=== PATIENT | male | born 1965 | race Caucasian/White ===

== ENCOUNTER 2022-01-21 18:28 | Emergency (ER) | payer MEDICARE, SELFPAY ==
[2022-01-21 18:42] VITALS: BP 149/80; PULSE 125; RESP 16; TEMP 36.7; O2SAT 97
--- NOTE | 2022-01-21 18:47 | W.ED.WOUNDLC ---
HPI - Wound/Laceration General: Chief Complaint: Wound/Laceration Stated Complaint: feet swelling Time Seen by Provider: 01/21/22 18:47 History of Present Illness: 56-year-old male patient comes in today for concerns of some swelling to bilateral lower extremities. Patient also reports stepping on a nail on the bottom of his left foot a couple of days ago he does not recall his last tetanus shot. Patient has a history of diabetes and reports cardiac surgery. Bilateral lower extremities has swelling and redness. Patient denies any chest pain or shortness of breath. Patient does talk a lot with flight of ideas but is able to reorient to questions about his health and his plans on where he is going. Patient is trying to make his way to [facility] [place] in order to establish residency for [place] and attend classes to become certified as a [employer]INION S[employer]. Review of Systems General: Reports: 10 or more systems reviewed and unremarkable except in HPI and below Musc: Reports: extremity swelling Physical Exam Const: COMMON NORMALS: alert HENMT: COMMON NORMALS: normocephalic HEAD & SCALP: normocephalic Resp: COMMON NORMALS: normal respiratory effort and clear to auscultation bilaterally AUSCULTATION: clear to auscultation bilaterally Cardio: PALPATION: normal PMI RATE: tachycardic GI: COMMON NORMALS: Soft to palpation PALPATION: Yes Soft to palpation and No Tenderness to palpation present (GI) Extremity: NARRATIVE EXTREMITY EXAM: Bilateral lower extremities with +2 edema and erythema. LEFT LOWER EXTREMITY: Yes foot & digits (Puncture wound to the left lower foot without any signs of redness or swell) Neuro: SENSORIUM/ORIENTATION: Yes alert Psych: COMMON NORMALS: cooperative ATTITUDE: Yes calm SPEECH: Yes excessive MOOD & AFFECT: Yes euthymic mood THOUGHT PROCESS: Flight of ideas present Skin: RASHES: rashes noted (Maculopapular rash to the abdomen) and other (Bilateral lower extremity erythema.) Course Vital Signs: Vital signs: Vital Signs Temperature 98.1 F 01/21/22 18:42 Pulse Rate 108 H 01/21/22 20:51 Respiratory Rate 19 H 01/21/22 20:51 Blood Pressure 125/69 01/21/22 20:36 Pulse Oximetry 97 01/21/22 20:51 Oxygen Delivery Me thod 01/21/22 20:51 MDM - Wound/Laceration Medical Decision Making 56-year-old male patient comes in today for some complaints of redness and swelling to bilateral lower extremities. Patient also reports a puncture wound to the left foot. Patient states a couple of days ago he had stepped on a nail and was worried he might be getting infection. Patient does not recall his last tetanus. On exam patient has bilateral lower extremity edema with redness in both lower legs. Pulses are intact. Puncture wound to the bottom of the left foot appears to be healing without any redness or soreness. Vital signs are normal except for some elevation in pulse. Patient is afebrile. Differential diagnosis includes but not limited to foreign body, peripheral edema, dependent edema, electrolyte imbalance, uncontrolled diabetes. CBC was unremarkable. CMP did note a potassium of 3.2. Creatinine was 0.9. X-ray of the foot indicated no foreign body or bony injury. We updated patient's tetanus. Patient was given 40 mEq of potassium for his low potassium. I believe patient's edema is probably secondary to his homelessness and inability to lay down at night. Patient reports setting up at the [employer] stop and not getting being able to sleep laying down. Patient also has a history of diabetes. Blood sugar was controlled at 170. I reviewed exam with patient with recommendations for treatment and follow-up. Patient reported understanding agreed to plan. Lab Data : 01/21/22 19:00 01/21/22 21:26 Radiology Impressions Foot X-Ray 01/21/22 19:37 IMPRESSION: No acute bony abnormality is identified. Laboratory Results WBC 7.5 10^3/uL (4.0-10.0) 01/21/22 19:00 RBC 4.26 10^6/uL (4.1-5.3) 01/21/22 19:00 Hgb 13.4 g/dL (11.7-16.6) 01/21/22 19:00 Hct 40.2 % (42.0-52.0) L 01/21/22 19:00 MCV 94.4 fl (80-94) H 01/21/22 19:00 MCH 31.5 pg (28.0-34.0) 01/21/22 19:00 MCHC 33.3 g/dL (30.0-36.0) 01/21/22 19:00 RDW 15.5 % (12.1-15.1) H 01/21/22 19:00 Plt Count 125 10^3/cmm (130-400) L 01/21/22 19:00 MPV 11.5 fL (7.4-10.4) H 01/21/22 19:00 Neut % (Auto) 64.8 % 01/21/22 19:00 Lymph % (Auto) 20.4 % 01/21/22 19:00 Broome % (Auto) 8.9 % 01/21/22 19:00 Eos % (Auto) 4.8 % 01/21/22 19:00 Baso % (Auto) 0.8 % 01/21/22 19:00 Neut # (Auto) 4.86 10^3/uL (1.8-7.7) 01/21/22 19:00 Lymph # (Auto) 1.5 10^3/uL (0.8-4.8) 01/21/22 19:00 Broome # (Auto) 0.7 10^3/uL (0.2-0.9) 01/21/22 19:00 Eos # (Auto) 0.4 10^3/uL (0.0-0.8) 01/21/22 19:00 Baso # (Auto) 0.1 10^3/uL (0.0-0.1) 01/21/22 19:00 Nucleated RBC % (auto) 0 % 01/21/22 19:00 Nucleated RBCs # 0.0 /100WBC 01/21/22 19:00 Sodium 144 mmol/L (136-145) 01/21/22 21:26 Potassium 3.2 mmol/L (3.5-5.1) L 01/21/22 21:26 Chloride 101 mmol/L (98-107) 01/21/22 21:26 Carbon Dioxide 32 mmol/L (22-29) H 01/21/22 21:26 Anion Gap 14.2 (5-19) 01/21/22 21:26 BUN 17 mg/dL (6-20) 01/21/22 21:26 Creatinine 0.9 mg/dL (0.7-1.2) 01/21/22 21:26 GFR Calculation 87.9 mL/min (90-130) L 01/21/22 21:26 Glucose 149 mg/dL (65-115) H 01/21/22 21:26 POC Glucose 171 mg/dL (70-110) H 01/21/22 20:50 Calculated Osmolality 302 mOsm/kg (285-295) H 01/21/22 21:26 Calcium 9.5 mg/dL (8.5-10.5) 01/21/22 21:26 Total Bilirubin 0.9 mg/dL (0.15-1.2) 01/21/22 21:26 AST 25 U/L (0-40) 01/21/22 21:26 ALT 13 U/L (0-41) 01/21/22 21:26 Alkaline Phosphatase 34 IU/L (40-130) L 01/21/22 21:26 Total Protein 7.3 g/dL (6.6-8.7) 01/21/22 21:26 Albumin 3.8 g/dL (3.5-5.2) 01/21/22 21:26 Globulin 3.5 g/dL (1.3-4.6) 01/21/22 21:26 Discharge Plan Discharge Patient Disposition: Home Clinical Impression: Peripheral edema, Peripheral vascular disease in diabetes mellitus, Hypokalemia Puncture wound of foot Qualifiers: Encounter type: initial encounter Laterality: left Qualified Code(s): S91.332A - Puncture wound without foreign body, left foot, initial encounter Condition: Stable Discharge Orders: Discharge ED (Routine); Ordered 01/21/22 Ordered By: John Kevin Discharge Diet: Usual diet Discharge Activity: Increase activity as tolerated Patient Instructions: Edema (ED) Activity Restrictions/Additional Instructions: Elevate lower extremities is much as possible. Wear compression socks. Follow-up with primary care as needed. Return to ER for new concerns such as fever greater than 100.4, shortness of breath, or chest pain. Medications not recommended at this time for the swelling. The swelling is because a combination of factors including the heat, your inability to get your feet up at night especially, and your cardiac history. Continue with your routine care. 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
[2022-01-21 19:00] VITALS: BP 149/92; PULSE 115; RESP 19; O2SAT 97
[2022-01-21 19:11] LABS: Basophils # 0.1 10^3/uL (0.0-0.1); Basophils % 0.8 %; Eosinophils # 0.4 10^3/uL (0.0-0.8); Eosinophils % 4.8 %; Hematocrit 40.2 % (42.0-52.0); Hemoglobin 13.4 g/dL (11.7-16.6); Lymphocytes # 1.5 10^3/uL (0.8-4.8); Lymphocytes % 20.4 %; Mean Corpuscular HGB Conc 33.3 g/dL (30.0-36.0); Mean Corpuscular Hemoglobin 31.5 pg (28.0-34.0); Mean Corpuscular Volume 94.4 fl (80-94); Mean Platelet Volume 11.5 fL (7.4-10.4); Monocytes # 0.7 10^3/uL (0.2-0.9); Monocytes % 8.9 %; Neutrophils # 4.86 10^3/uL (1.8-7.7); Neutrophils % 64.8 %; Nucleated Red Blood Cells % 0 %; Platelet Count 125 10^3/cmm (130-400); Red Blood Count 4.26 10^6/uL (4.1-5.3); Red Cell Distribution Width 15.5 % (12.1-15.1); White Blood Count 7.5 10^3/uL (4.0-10.0)
[2022-01-21] MEDS: tetanus-dipt-pertussis 0.5 mL SDV IM (19:20)
[2022-01-21 19:35] VITALS: BP 149/92; PULSE 105; RESP 20; O2SAT 98
--- NOTE | 2022-01-21 19:37 | XRR_ITS ---
PROCEDURE INFORMATION: Exam: XR Left Foot Exam date and time: 01/21/2022 8:26 PM Age: 56 years old Clinical indication: Injury or trauma; Other: Puncture wound; Foot; Left; Foreign body involvement not specified; Injury details: Unclear HX due to PT confusion TECHNIQUE: Imaging protocol: Radiologic exam of the Left foot. Views: 3 or more views. COMPARISON: No relevant prior studies available. FINDINGS: Bones/joints: No periosteal reaction or inflammatory erosions. No acute fracture. No dislocation. The Lisfranc joint alignment is intact. No bony destruction or osteomyelitis. There is an incidental area of lucency in the 2nd proximal phalanx compatible with incidental enchondroma. Soft tissues: There is no foreign body. XR/XR foot LT min 3V* [id number] IMPRESSION: No acute bony abnormality is identified.
[2022-01-21 20:36] VITALS: BP 125/69; PULSE 102; RESP 20; O2SAT 95
--- NOTE | 2022-01-21 20:39 | PC.NURSE ---
green top blood vial drawn x 1 via peripheral iv, x 2 via [employer], lab unable to run sample. 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
[2022-01-21 20:51] VITALS: PULSE 108; RESP 19; O2SAT 97
[2022-01-21 20:54] LABS: Glucose Point of Care 171 mg/dL (70-110)
[2022-01-21 22:15] LABS: Alanine Aminotransferase 13 U/L (0-41); Albumin Level 3.8 g/dL (3.5-5.2); Alkaline Phosphatase 34 IU/L (40-130); Blood Urea Nitrogen 17 mg/dL (6-20); Calcium 9.5 mg/dL (8.5-10.5); Carbon Dioxide 32 mmol/L (22-29); Chloride 101 mmol/L (98-107); Globulin 3.5 g/dL (1.3-4.6); Glomerular Filtration Rate 87.9 mL/min (90-130); Glucose 149 mg/dL (65-115); Osmolality Calculated 302 mOsm/kg (285-295); Sodium 144 mmol/L (136-145); Total Bilirubin 0.9 mg/dL (0.15-1.2); Total Protein 7.3 g/dL (6.6-8.7)
[2022-01-21 22:20] LABS: Anion Gap 14.2 (5-19); Aspartate Amino Transferase 25 U/L (0-40); Potassium 3.2 mmol/L (3.5-5.1)
[2022-01-21] MEDS: potassium chloride ER 20 mEq Tablet 40 MEQ PO (22:57)
[2022-01-21 23:31] VITALS: BP 145/85; PULSE 99; RESP 20; O2SAT 96
== END 2022-01-21 23:32 | disposition home or self-care (01) ==
PROVIDERS: Emergency Provider Nurse Practitioner Family
DX: S91.332A Puncture wound without foreign body, left foot, initial encounter (principal); R60.0 Localized edema; E11.51 Type 2 diabetes mellitus with diabetic peripheral angiopathy without gangrene; E87.6 Hypokalemia; W45.0XXA Nail entering through skin, initial encounter; Z23 Encounter for immunization
CPT/HCPCS: 36415; 36416; 73630; 80053; 82962; 85025; 90471; 90715; 99284